=== PATIENT | female | born 1960 | race Caucasian/White ===

== ENCOUNTER 2017-02-05 11:34 | Emergency (ER) | payer SELFPAY ==
--- NOTE | 2017-02-05 17:58 | ED Physician Documentation ---
Neck Injury/Pain - HISTORIAN Historian: patient - HPI Stated Complaint: neck pain Chief Complaint: Neck Pain Additional Information: has had multiple fusions on her neck, last was 6 months ago. they are tapering her off pain medicine and she has been having pain and L upper extremity neuropathy x 2 weeks. No new trauma or injury. Onset: days ago Duration: continues in ED Recent Injury: No Where: home Other Injuries: denies: head, back Severity: mild Quality: burning Associated Symptoms: numbness, tingling. denies: fever Exacerbated By: nothing Relieved By: nothing Further Comments: no - ROS NEURO/PSYCH: denies: difficulty with speech EYES/ENT: none CVS/RESP: none CONST: no problems GI/: denies: nausea, vomiting MS/SKIN/LYMPH: none - PAST HX Past History: arthritis, intervertebral disc dis., back injury, neck pain, back pain Cardiac Risk Factors: denies: cardiac disease Surgeries/Procedures: neck surgery, back surgery, fusion, discectomy CT/MRI: Yes Immunizations: UTD Allergies/Adverse Reactions: Allergies Allergy/AdvReac Type Severity Reaction Status Date / Time bupropion HCl Allergy Verified 02/05/17 17:51 [From Wellbutrin] Penicillins Allergy Verified 02/05/17 17:51 Sulfa (Sulfonamide Allergy Verified 02/05/17 17:51 Antibiotics) Home Medications: Ambulatory Orders Medication Instructions Recorded Metformin HCl [Glucophage] 500 mg PO D 08/04/13 Zolpidem Tartrate [Ambien] 10 mg PO D 08/04/13 Diazepam [Diazepam] 11/25/15 Oxycodone HCl/Acetaminophen 11/25/15 [Oxycodone-Acetaminophen 10-325] - SOCIAL HX Smoking History: non-smoker Alcohol Use: none Drug Use: none - FAMILY HX Family History: none - VITAL SIGNS Vital Signs: Vital Signs Temp Pulse Resp BP Pulse Ox 98.1 F 91 H 14 105/49 99 02/05/17 17:47 02/05/17 17:47 02/05/17 17:47 02/05/17 17:47 02/05/17 17:47 - REVIEWED ASSESSMENT Nursing Assessment Reviewed: Yes Vitals Reviewed: Yes ED Results Lab/Radiology - Orders Orders: ED Orders Category Date Time Status Ketorolac Tromethamine [Toradol] Med 02/05/17 18:03 Discontinued 60 mg .ROUTE .STK-MED ONE Ketorolac Tromethamine [Toradol] Med 02/05/17 18:08 Discontinued 60 mg IM NOW ONE methylPREDNISolone SOD SUCC [Solu-MEDROL] Med 02/05/17 18:03 Discontinued 125 mg .ROUTE .STK-MED ONE methylPREDNISolone SOD SUCC [Solu-MEDROL] Med 02/05/17 18:07 Discontinued 125 mg IM NOW ONE Neck Injury/Pain - Physical Exam General Appearance: no acute distress, alert EENT: nml ENT inspection Neck: decreased ROM. No: lymphadenopathy, subcutaneous emphysema Back: non-tender Respiratory: chest non-tender Abdomen: non-tender Skin: warm/dry Extremities: non-tender, normal range of motion, no evidence of injury Neuro/Psych: oriented x3, sensation nml, motor nml, mood/affect nml Discharge Clincal Impression: Cervical neuralgia, Disc disease, degenerative, cervical Home Medications: Ambulatory Orders Metformin HCl [Glucophage] 500 mg PO D 08/04/13 Zolpidem Tartrate [Ambien] 10 mg PO D 08/04/13 Diazepam [Diazepam] 11/25/15 Oxycodone HCl/Acetaminophen [Oxycodone-Acetaminophen 10-325] 11/25/15 Condition: Good Disposition: 01 HOME, SELF-CARE Decision to Admit: NO Date of Decison to Admit: 02/05/17 Decision Time: 18:22
[2017-02-05] MEDS ORDERED: KETOROLAC TROMETHAMINE 60 MG/2 ML VIAL ONE (18:03)
[2017-02-05] MEDS ORDERED: methylPREDNISolone SOD SUCC 125 MG/2 ML VIAL ONE (18:03)
[2017-02-05] MEDS: methylPREDNISolone SOD SUCC 125 MG/2 ML VIAL IM ONE (18:10)
[2017-02-05] MEDS: KETOROLAC TROMETHAMINE 60 MG/2 ML VIAL IM ONE (18:10)
[2017-02-05 18:32] VITALS: BP 107/51
== END 2017-02-05 18:32 | disposition home or self-care (01) ==
LOC: ED 17:33
DX: M50.30 Other cervical disc degeneration, unspecified cervical region (principal)
CPT/HCPCS: J1885; J2930; 96372; 99283

== ENCOUNTER 2017-03-25 14:35 | Emergency (ER) | payer OTHER ==
[2017-03-25 14:53] VITALS: BP 96/60
[2017-03-25] MEDS ORDERED: KETOROLAC TROMETHAMINE 60 MG/2 ML VIAL IM ONE (14:58)
[2017-03-25] MEDS ORDERED: methylPREDNISolone SOD SUCC 125 MG/2 ML VIAL IM ONE (14:58)
[2017-03-25] MEDS ORDERED: oxyCODONE/ACETAMINOPHEN 5/325 TABLET PO ONE (15:46)
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
== END 2017-03-25 15:52 | disposition home or self-care (01) ==
LOC: ED 14:35
DX: M54.2 Cervicalgia (principal)
CPT/HCPCS: A9270; J1885; J2930; 96372; 99283

== ENCOUNTER 2017-04-08 14:45 | Emergency (ER) | payer OTHER ==
[2017-04-08 16:13] LABS: BASOPHILS % 0.4 (0.0-1.5); EOSINOPHILS % 3.4 % (0.0-6.8); MEAN CORPUSCULAR HEMOGLOBIN 30.3 pg (28.0-34.0); MONOCYTES % 4.8 % (0.0-11.0); NEUTROPHILS # 10.4 # k/uL (1.4-7.7)
--- NOTE | 2017-04-08 16:22 | Diagnostic Imaging Report ---
[facility] [address] [address] Report Submission Date: Apr 08, 2017 4:11:28 PM CDT Patient Study Name: MADAN SADLER Date: Apr 08, 2017 3:49:40 PM CDT Modality Type: CR Gender: F Description: CHEST : 64 Institution: [facility] Physician: KETAN WEI - FRANCES Chest PA and lateral views Clinical history: Cough and fever Linear scar on the right lower lung and left base. No acute infiltrate or pleural effusion. Normal heart shadow and mediastinum. Normal bony thorax Impression: No active pulmonary pathology Electronically signed on Apr 08, 2017 4:11:28 PM CDT by: Vic ISRAEL
[2017-04-08 16:27] LABS: eGFR (African) > 60; eGFR (Non-African) > 60
[2017-04-08] MEDS: oxyCODONE/ACETAMINOPHEN 5/325 TABLET PO ONE (16:49)
[2017-04-08 17:34] VITALS: BP 100/63
--- NOTE | 2017-04-08 19:31 | ED Physician Documentation ---
Upper Respiratory Symptoms - HISTORIAN Historian: patient - HPI Stated Complaint: cough, fever Chief Complaint: Cough/ Upper Respiratory Additional Information: fever prod cough green prod and nasal-on azithromycin since yest-cough med "taste bad-nausea" best friend dx w/pneumonia Onset: days ago (2-3) Duration: intermittent episodes Context: denies: recent foreign travel, insect bite(s) Severity: moderate Associated Symptoms: fever, chills, sweating Worsened by Deep Breath: Yes - ROS CONST/EYES: denies: weakness, eye redness CVS/RESP: shortness of breath LYMPH: denies: leg swelling, rash, swollen glands GI/: none NEURO/PSYCH: anxiety, depression MS/SKIN: joint pain. denies: rash - PAST HX Lung Disease: none Other History: other (diabetes anxiety bipolart depression ) Allergies/Adverse Reactions: Allergies Allergy/AdvReac Type Severity Reaction Status Date / Time bupropion HCl Allergy Verified 04/08/17 15:17 [From Wellbutrin] Penicillins Allergy Verified 04/08/17 15:17 Sulfa (Sulfonamide Allergy Verified 04/08/17 15:17 Antibiotics) Home Medications: Ambulatory Orders Medication Instructions Recorded Albuterol Sulfate [Proair Hfa] 2 inhalation IH Q 4-6 HRS PRN #1 03/21/17 each Duloxetine HCl 60 mg PO DAILY 03/21/17 Fluticasone Propionate 100 mcg NS DAILY #1 brittney 03/21/17 Loratadine/Pseudoephedrine 1 each PO DAILY u2 03/21/17 [Claritin-D 24 Hour Tablet] Nortriptyline HCl 25 mg PO BID av 03/21/17 - SOCIAL HX Smoking History: greater than 1 pack/day Alcohol Use: none Drug Use: none - FAMILY HX Family History: no significant history - VITAL SIGNS Vital Signs: Vital Signs Temp Pulse Resp BP Pulse Ox 98.2 F 87 16 100/63 95 04/08/17 17:33 04/08/17 17:33 04/08/17 17:33 04/08/17 17:33 04/08/17 17:33 - REVIEWED ASSESSMENTS Nursing Assessment Reviewed: Yes Vitals Reviewed: Yes ED Results Lab/Radiology - Lab Results Lab Results: Lab Results 04/08/17 04/08/17 16:00 16:00 WBC 14.30 K/ul H K/ul (4.00-12.00) RBC 3.94 M/ul M/ul (3.90-5.20) Hgb 11.9 g/dL L g/dL (12.0-16.0) Hct 37.0 % % (34.5-46.5) MCV 94.0 fl fl (80.0-100.0) MCH 30.3 pg pg (28.0-34.0) MCHC 32.2 g/dL g/dL (30.0-36.0) RDW 14.0 % % (11.3-14.3) Plt Count 413 K/mm3 H K/mm3 (130-400) Neut % (Auto) 73.1 % % (39.0-79.0) Lymph % (Auto) 17.0 % % (16.0-50.0) [place] % (Auto) 4.8 % % (0.0-11.0) Eos % (Auto) 3.4 % % (0.0-6.8) Baso % (Auto) 0.4 (0.0-1.5) Neut # (Auto) 10.4 # k/uL H # k/uL (1.4-7.7) Lymph # (Auto) 2.4 # k/uL # k/uL (0.6-4.0) [place] # (Auto) 0.7 # k/uL # k/uL (0.0-0.9) Eos # (Auto) 0.5 # k/uL # k/uL (0.0-0.6) Baso # (Auto) 0.1 # k/uL # k/uL (0.0-0.5) Reactive Lymphs % 1.2 % % (0.0-5.0) Reactive Lymphs # 0.2 # k/uL # k/uL (0.0-0.8) Sodium 140 mmol/L mmol/L (136-145) Potassium 4.4 mmol/L mmol/L (3.5-5.0) Chloride 109 mmol/L mmol/L (98-110) Carbon Dioxide 28 mmol/L mmol/L (20-32) BUN 12 mg/dL mg/dL (10-26) Creatinine 0.8 mg/dL mg/dL (0.4-1.5) Estimated Creat Clear 231 Est GFR ( Amer) > 60 (60 - ) Est GFR (Non-Af Amer) > 60 (60 - ) Glucose 89 mg/dL mg/dL (70-99) Calcium 9.7 mg/dL mg/dL (8.5-10.5) Total Bilirubin 0.2 mg/dL mg/dL (0.2-1.2) AST 28 U/L U/L (0-41) ALT 45 U/L U/L (0-45) Alkaline Phosphatase 108 U/L U/L (46-116) Total Protein 6.1 g/dL g/dL (6.0-8.5) Albumin 3.9 g/dL g/dL (3.0-5.5) - Radiology Radiology Impressions: cxr=wnl - Orders Orders: ED Orders Category Date Time Status CHEST P.A.&LAT 2 VIEWS [RAD] Stat Exams 04/08/17 Completed CBC/PLATELET/DIFF NOW Lab 04/08/17 16:00 Completed CMP NOW Lab 04/08/17 16:00 Completed oxyCODONE HCL/ACETAMINOPHEN [Percocet 5-325 mg Tablet] Med 04/08/17 16:41 Discontinued 1 each PO NOW ONE Upper Respiratory Symptoms - EXAM General Appearance: mild distress EENT: eyes nml inspection Neck: normal inspection, supple Respiratory: no resp. distress, wheezes, rales Abdomen: non-tender, no distention CVS: reg rate & rhythm, heart sounds normal Skin: color nml, no rash, warm,dry. No: cyanosis, diaphoresis, pallor Extremities: non-tender Neuro/Psych: oriented x3, mood/affect nml Discharge Clincal Impression: Cough due to bronchospasm, chronic pain patiernt Referrals: Vic Mukherjee MD [Primary Care Provider] - 2 Days Home Medications: Ambulatory Orders Albuterol Sulfate [Proair Hfa] 2 inhalation IH Q 4-6 HRS PRN #1 each 03/21/17 Duloxetine HCl 60 mg PO DAILY 03/21/17 Fluticasone Propionate 100 mcg NS DAILY #1 brittney 03/21/17 Loratadine/Pseudoephedrine [Claritin-D 24 Hour Tablet] 1 each PO DAILY u2 03/21 Nortriptyline HCl 25 mg PO BID av 03/21/17 Comments: pt on chronic narcotic-out requests refill-not given-pt req tylenol w/codiene for cough Condition: Good Disposition: 01 HOME, SELF-CARE Decision to Admit: NO Decision Time: 19:26
== END 2017-04-08 17:33 | disposition home or self-care (01) ==
LOC: ED 14:45
DX: R05 Cough (principal); G89.29 Other chronic pain
CPT/HCPCS: 71020; 80053; 85025; A9270; 99283; S1016

== ENCOUNTER 2017-04-11 20:29 | Emergency (ER) | payer OTHER ==
[2017-04-11 20:45] VITALS: BP 127/83
[2017-04-11] MEDS ORDERED: oxyCODONE/ACETAMINOPHEN 5/325 TABLET PO ONE ×2 (20:45→20:46)
[2017-04-11] MEDS ORDERED: methylPREDNISolone SOD SUCC 125 MG/2 ML VIAL IM ONE (20:46)
[2017-04-11] MEDS ORDERED: methylPREDNISolone SOD SUCC 125 MG/2 ML VIAL ONE (20:46)
--- NOTE | 2017-04-11 20:50 | ED Physician Documentation ---
Low Back Pain - HISTORIAN Historian: patient - HPI Stated Complaint: back pain Chief Complaint: Low Back Pain/ Injury Additional Information: is out of meds History: history of chronic pain:, back pain Onset: days ago Duration: continues in ED Recent Injury: No Severity: mild Quality: sharp, similar- prior back pain Associated Symptoms: denies: fever, chills, problems urinating, weakness Worsened By:: movement to RT flexion, movement to LT flexion Relieved By: nothing Further Comments: no - ROS CONST: no problems CVS/RESP: none EYES/ENT: none MS/SKIN/LYMPH: none Neuro/Psych: none GI/: denies: abdominal pain - PAST HX Past History: back injury, back pain, sciatica Other History: denies: aortic aneurysm Surgeries/Procedures: back surgery Allergies/Adverse Reactions: Allergies Allergy/AdvReac Type Severity Reaction Status Date / Time bupropion HCl Allergy Verified 04/11/17 20:39 [From Wellbutrin] Penicillins Allergy Verified 04/11/17 20:39 Sulfa (Sulfonamide Allergy Verified 04/11/17 20:39 Antibiotics) Home Medications: Ambulatory Orders Medication Instructions Recorded Albuterol Sulfate [Proair Hfa] 2 inhalation IH Q 4-6 HRS PRN #1 03/21/17 each Duloxetine HCl 60 mg PO DAILY 03/21/17 Fluticasone Propionate 100 mcg NS DAILY #1 brittney 03/21/17 Nortriptyline HCl 25 mg PO BID av 03/21/17 - SOCIAL HX Smoking History: cigarettes Alcohol Use: occasionally Drug Use: none - FAMILY HX Family History: none - VITAL SIGNS Vital Signs: Vital Signs Temp Pulse Resp BP Pulse Ox 98.1 F 108 H 16 127/83 97 04/11/17 20:30 04/11/17 20:30 04/11/17 20:30 04/11/17 20:30 04/11/17 20:30 - REVIEWED ASSESSMENTS Nursing Assessment Reviewed: Yes Vitals Reviewed: Yes ED Results Lab/Radiology - Orders Orders: ED Orders Category Date Time Status methylPREDNISolone SOD SUCC [Solu-MEDROL] Med 04/11/17 20:46 Once 125 mg IM NOW ONE oxyCODONE HCL/ACETAMINOPHEN [Percocet 5-325 mg Tablet] Med 04/11/17 20:45 Discontinued 1 each PO .STK-MED ONE oxyCODONE HCL/ACETAMINOPHEN [Percocet 5-325 mg Tablet] Med 04/11/17 20:46 Once 1 each PO NOW ONE Low Back Pain/Injury - Physical Exam General Appearance: no acute distress, alert Resp/CVS: no resp. distress Abdomen: non-tender Back: muscle spasm Neuro/Psych: oriented x3 Skin: warm/dry, normal color Extremities: non-tender Discharge Clincal Impression: Chronic back pain Qualifiers: Back pain location: low back pain Back pain laterality: unspecified Sciatica presence: with sciatica Sciatica laterality: bilateral sciatica Qualified Code(s ): M54.41 - Lumbago with sciatica, right side; M54.42 - Lumbago with sciatica, left side; G89.29 - Other chronic pain Referrals: Vic Mukherjee MD [Primary Care Provider] - 2 Days Home Medications: Ambulatory Orders Albuterol Sulfate [Proair Hfa] 2 inhalation IH Q 4-6 HRS PRN #1 each 03/21/17 Duloxetine HCl 60 mg PO DAILY 03/21/17 Fluticasone Propionate 100 mcg NS DAILY #1 brittney 03/21/17 Nortriptyline HCl 25 mg PO BID av 03/21/17 Condition: Good Disposition: 01 HOME, SELF-CARE Decision to Admit: NO Date of Decison to Admit: 04/11/17 Decision Time: 20:50
== END 2017-04-11 20:50 | disposition home or self-care (01) ==
LOC: ED 20:29
DX: M25.441 Effusion, right hand (principal); M54.42 Lumbago with sciatica, left side; G89.29 Other chronic pain
CPT/HCPCS: A9270; J2930; 96372; 99283

== ENCOUNTER 2017-05-02 15:45 | Outpatient (CLI) | payer OTHER | END 2017-05-02 15:46 | LOC: LAB 15:45 | PROVIDERS: ATTEND Family Medicine | DX: E11.9 Type 2 diabetes mellitus without complications (principal) | CPT/HCPCS: 36415; 82043; 83036 ==

== ENCOUNTER 2017-05-03 21:38 | Emergency (ER) | payer OTHER ==
[2017-05-03] MEDS: KETOROLAC TROMETHAMINE 60 MG/2 ML VIAL IM ONE (22:10)
[2017-05-03] MEDS: HALOPERIDOL LACTATE 5 MG/ML VIAL IM ONE (22:10)
--- NOTE | 2017-05-03 22:10 | ED Physician Documentation ---
Low Back Pain - HISTORIAN Historian: patient - HPI Stated Complaint: left hip pain Chief Complaint: Low Back Pain/ Injury History: back pain Onset: other (normal back pain with radiation down left leg but tired of the pain) Duration: continues in ED Recent Injury: No Context: other (chronic) Other Injuries: back Severity: moderate Quality: similar- prior back pain Associated Symptoms: numbness (left leg) Worsened By:: movement to RT flexion, movement to LT flexion Relieved By: nothing Further Comments: no - ROS CONST: no problems CVS/RESP: none EYES/ENT: none MS/SKIN/LYMPH: none Neuro/Psych: none GI/: denies: abdominal pain, black stools - PAST HX Past History: back pain, other (bipolar disorder) Other History: diabetes Type 2, hypertension, other (anxiety, depression) Surgeries/Procedures: hysterectomy, other (otho) Immunizations: referred to PCP Allergies/Adverse Reactions: Allergies Allergy/AdvReac Type Severity Reaction Status Date / Time bupropion HCl Allergy Verified 05/03/17 21:52 [From Wellbutrin] Penicillins Allergy Verified 05/03/17 21:52 Sulfa (Sulfonamide Allergy Verified 05/03/17 21:52 Antibiotics) Home Medications: Ambulatory Orders Medication Instructions Recorded Albuterol Sulfate [Proair Hfa] 2 inhalation IH Q 4-6 HRS PRN #1 03/21/17 each Duloxetine HCl 60 mg PO DAILY 03/21/17 Fluticasone Propionate 100 mcg NS DAILY #1 brittney 03/21/17 Nortriptyline HCl 25 mg PO BID av 03/21/17 - SOCIAL HX Smoking History: non-smoker Alcohol Use: none Drug Use: none - FAMILY HX Family History: no significant history - VITAL SIGNS Vital Signs: Vital Signs Temp Pulse Resp BP Pulse Ox 60 16 122/72 98 05/03/17 22:20 05/03/17 22:20 05/03/17 22:20 05/03/17 22:20 - REVIEWED ASSESSMENTS Nursing Assessment Reviewed: Yes Vitals Reviewed: Yes Progress - Results/Orders Results/Orders: no testing ordered - Progress Progress: pt. given 60 mg toradol and 5 mg haldol im in er Critical Care Note - Critical Care Note Total Time (mins): 0 ED Results Lab/Radiology - Lab Results Lab Results: none ordered - Radiology Radiology Impressions: none ordered - Orders Orders: ED Orders Category Date Time Status Haloperidol Lactate [Haldol] Med 05/03/17 21:48 Discontinued 5 mg IM NOW ONE Ketorolac Tromethamine [Toradol] Med 05/03/17 21:48 Discontinued 60 mg IM NOW ONE Low Back Pain/Injury - Physical Exam General Appearance: alert, moderate distress EENT: eye inspection normal, ENT inspection normal, pharynx normal, no signs of dehydration, GLYNN, no nystagmus, TM's nml Neck: non-tender, painless ROM Resp/CVS: chest non-tender, breath sounds nml, heart sounds nml, no resp. distress, lungs clear, reg. rate & rhythm Abdomen: non-tender, no organomegaly Straight Leg Raising: Negative Right, Positive Left Neuro/Psych: oriented x3, motor nml, sensation nml, bilat. doriflexion nml, reflexes nml Skin: warm/dry, normal color Extremities: non-tender, normal range of motion, no evidence of injury, no edema Discharge Clincal Impression: Sciatica Qualifiers: Laterality: left Qualified Code(s): M54.32 - Sciatica, left side Referrals: Vic Mukherjee MD [Primary Care Provider] - 2 Days Home Medications: Ambulatory Orders Albuterol Sulfate [Proair Hfa] 2 inhalation IH Q 4-6 HRS PRN #1 each 03/21/17 Duloxetine HCl 60 mg PO DAILY 03/21/17 Fluticasone Propionate 100 mcg NS DAILY #1 brittney 03/21/17 Nortriptyline HCl 25 mg PO BID av 03/21/17 Comments: discharged with scripts for parafon forte dsc 500 mg 1 p.o. qid, meloxicam 7.5 mg 1 pill twice daily Condition: Stable Disposition: 01 HOME, SELF-CARE Decision to Admit: NO Decision Time: 22:06
[2017-05-03 22:52] VITALS: BP 122/72
== END 2017-05-03 22:20 | disposition home or self-care (01) ==
LOC: ED 21:38
DX: M54.32 Sciatica, left side (principal)
CPT/HCPCS: 96372; 99283; J1630; J1885

== ENCOUNTER 2017-05-21 09:19 | Outpatient (CLI) | payer OTHER ==
--- NOTE | 2017-05-21 12:12 | HISTORY AND PHYSICAL REPORT ---
REFERRING PHYSICIAN: Dr. Vic Mukherjee Dear Link: HISTORY OF PRESENT ILLNESS: I had the opportunity of seeing Laine Jain today as an outpatient at [facility]. Ms. Jain is a very nice 57-year-old white female who presents with a chief complaint of left low back, hip, and leg pain and secondary complaints of mid-axial pain at the cervicothoracic junction in between her shoulder blades. She denies any recent accident or injury. She has had 2 previous anterior cervical diskectomies and fusions and what appears to be a lumbar diskectomy by Dr. Li in 2006 or 2007. She says that the symptoms that she is currently having have been getting worse over the past 2 years and they have gotten quite a bit worse over the past 6 months and she complains of constant left-sided back pain radiating to the left hip. She has been taking oxycodone intermittently and periodically written by Dr. Mukherjee for number 30. She also takes diazepam. She has type 2 diabetes which is well controlled. She is on Metformin. She, otherwise, has suffered the recent loss of her . She has transportation issues in regards to getting to my office in [place]. She says the hip and leg pain are the worst complaint. She currently has back and hip pain when she stands and walks first thing in the morning and worse over the course of the day. She says the pain is better with rest and lying down and taking pain medication. She has no recent imaging. She denies arm pain. She denies pain in her right leg. She denies incontinence of bowel or bladder or symptoms of neurogenic claudication. PAST MEDICAL HISTORY: 1. Positive for vision problems. 2. Nose or sinus problems. 3. Asthma. 4. Bronchitis. 5. Stomach ulcers or gastritis. 6. Depression. 7. Anxiety. 8. Frequent headaches. 9. Diabetes. PAST SURGICAL HISTORY: 1. Neck surgery in 1998 and 2015. 2. Low back surgery in 2007. 3. Hysterectomy in 2002. 4. Right ankle and left wrist surgery in 2011. CURRENT MEDICATION LIST: 1. Nortriptyline 50 mg t.i.d. 2. Percocet 5/325 mg b.i.d. p.r.n. 3. Metformin 1000 mg b.i.d. 4. Lisinopril 2.5 mg daily. 5. Diazepam 5 mg t.i.d. 6. Flonase 50 mcg x2 daily. 7. ProAir p.r.n. 8. Duloxetine 60 mg daily. 9. Vitamin B daily. 10. Multivitamin daily. ALLERGIES: 1. Penicillin. 2. Sulfa. 3. Meloxicam. 4. Wellbutrin. SOCIAL HISTORY: Patient currently smokes 1 to 1-1/2 packs of cigarettes per day. She denies drinking alcohol. She said she quit drinking in 1992. She denies recreational drug use. She is a since November 08 of this year. She was for 21 years previous. She has no children. She lives alone with her dog. She is disabled due to low back problems in 2003. FAMILY HISTORY: Unknown in patient's father. Diabetes and pain problems in patient's mother. REVIEW OF SYSTEMS: Positive for head cold, swelling in her hands and feet, cough, cold, and infection, stomach pain and upset, depression, anxiety, and headaches. Treatment for the current pain problems include previous back and neck surgeries. She has been to physical therapy which has not helped. She has been currently going to psychological counseling, as she lost her in November and has noted increased stress and pain since that event. PHYSICAL EXAMINATION: General: She is a well-developed white female in no apparent distress. Vital Signs: BP: 136/70, P: 88, R: 20, oxygen saturation is 99% on room air. HEENT: Pupils are equal, round, and reactive to light and accommodation. Extraocular movements intact. No facial droop. Neck: There is full range of motion of the cervical spine. No evidence of adenopathy. Thyroid is nontender, no enlarged. Carotids are without bruits. Chest: Clear to auscultation bilaterally. Normal chest excursion. Heart: Regular rate and rhythm without murmur. Abdomen: Benign. Normoactive bowel sounds. Motor/sensory: Intact in the upper and lower extremities. Moves all extremities freely. Back: There is a positive straight leg raise on the left and negative straight leg raise on the right. Positive for pain at the left sciatic notch and left sacroiliac joint. Reflexes are 2+ and equal at the patellar tendons and Achilles tendons. Sensorium is intact. There is a positive assisted extension and extension rotation of the thoracic and cervical spine. ASSESSMENT: 1. Left L4-L5 radiculitis, possible previous surgical decompression. I recommend a new MRI study and a palliative epidural injection. 2. Cervical and thoracic spondylosis. Would likely be adequately treated with facet medial branch block and radiofrequency neurolysis. 3. Diabetes mellitus type 2, well controlled on Metformin. 4. Tobacco use. Recommend cessation. 5. Chronic opiate dependence. PLAN: I will provide her with a prescription today and have her follow up in my office for a urine toxicology screen and an opiate contract. I told her that I could manage her medications through my [place] office. Dr. Mukherjee, thank you very much for allowing me to take part in the care of this nice lady. We will check her insurance product regarding ability for preauthorization for treatment. cc: Dr. Vic ISRAEL
== END 2017-05-21 10:00 ==
LOC: OUT 09:19
PROVIDERS: ATTEND Anesthesiology Pain Medicine
DX: M54.16 Radiculopathy, lumbar region (principal); M47.894 Other spondylosis, thoracic region; F11.20 Opioid dependence, uncomplicated; F17.200 Nicotine dependence, unspecified, uncomplicated; E11.9 Type 2 diabetes mellitus without complications; Z71.89 Other specified counseling
CPT/HCPCS: 99214; G0463

== ENCOUNTER 2017-06-04 23:33 | Emergency (ER) | payer OTHER ==
[2017-06-05] MEDS: KETOROLAC TROMETHAMINE 60 MG/2 ML VIAL IM ONE (00:27)
--- NOTE | 2017-06-05 00:48 | ED Physician Documentation ---
Low Back Pain - HISTORIAN Historian: patient - HPI Stated Complaint: Back pain Chief Complaint: Low Back Pain/ Injury History: history of chronic pain:, back pain Onset: hours Duration: continues in ED Context: lifting Severity: severe Further Comments: yes (57 year old male presents to the ER with complaints of sciatica radiating down left leg. Patient reports lifting his brother in law, "pulled my back". Patient is accompanied by his friend who presents with similar complaints. C/O pain radiating down left leg.) - ROS CONST: no problems CVS/RESP: none EYES/ENT: none MS/SKIN/LYMPH: back pain Neuro/Psych: none GI/: denies: abdominal pain, black stools - PAST HX Past History: back pain, sciatica Other History: other (COPD, depression, sciatica, HLD) Allergies/Adverse Reactions: Allergies Allergy/AdvReac Type Severity Reaction Status Date / Time bupropion HCl Allergy Verified 06/04/17 23:55 [From Wellbutrin] metformin Allergy Verified 06/04/17 23:55 Penicillins Allergy Verified 06/04/17 23:55 Sulfa (Sulfonamide Allergy Verified 06/04/17 23:55 Antibiotics) Home Medications: Ambulatory Orders Medication Instructions Recorded Albuterol Sulfate [Proair Hfa] 2 inhalation IH Q 4-6 HRS PRN #1 03/21/17 each Duloxetine HCl 60 mg PO DAILY 03/21/17 Fluticasone Propionate 100 mcg NS DAILY #1 brittney 03/21/17 Nortriptyline HCl 25 mg PO BID av 03/21/17 Atorvastatin Calcium 40 mg PO QDAY 06/05/17 Naproxen [Naprosyn] 500 mg PO BID #10 tablet 06/05/17 - SOCIAL HX Smoking History: cigarettes - FAMILY HX Family History: denies: none - VITAL SIGNS Vital Signs: Vital Signs Temp Pulse Resp BP Pulse Ox 98.6 F 96 H 14 97/58 93 06/04/17 23:35 06/05/17 00:18 06/04/17 23:35 06/05/17 00:18 06/05/17 00:18 - REVIEWED ASSESSMENTS Nursing Assessment Reviewed: Yes Vitals Reviewed: Yes ED Results Lab/Radiology - Orders Orders: ED Orders Category Date Time Status Ketorolac Tromethamine [Toradol] Med 06/05/17 00:07 Discontinued 60 mg IM NOW ONE Low Back Pain/Injury - Physical Exam General Appearance: no acute distress, alert EENT: eye inspection normal, GLYNN Resp/CVS: chest non-tender, breath sounds nml, heart sounds nml, no resp. distress, lungs clear, reg. rate & rhythm Back: non-tender, painless ROM, other (c/o pain with palpation of left paraspinous muscles and left buttock. Up pacing in room, no limp, gait steady, no grimace with ambulation. ) Straight Leg Raising: Negative Left, Negative Right Neuro/Psych: oriented x3, motor nml, sensation nml, bilat. 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 Clincal Impression: Sciatica Qualifiers: Laterality: left Qualified Code(s): M54.32 - Sciatica, left side Prescriptions: Naproxen [Naprosyn] 500 mg PO BID #10 tablet Referrals: Vic Mukherjee MD [Primary Care Provider] - 2 Days Home Medications: Ambulatory Orders Albuterol Sulfate [Proair Hfa] 2 inhalation IH Q 4-6 HRS PRN #1 each 03/21/17 Duloxetine HCl 60 mg PO DAILY 03/21/17 Fluticasone Propionate 100 mcg NS DAILY #1 brittney 03/21/17 Nortriptyline HCl 25 mg PO BID av 03/21/17 Atorvastatin Calcium 40 mg PO QDAY 06/05/17 Naproxen [Naprosyn] 500 mg PO BID #10 tablet 06/05/17 Condition: Stable Disposition: 01 HOME, SELF-CARE Decision to Admit: NO Decision Time: 00:50
--- NOTE | 2017-06-05 00:53 | ED Physician Documentation ---
Low Back Pain - HISTORIAN Historian: patient, friend - [facility] Stated Complaint: Back pain Chief Complaint: Low Back Pain/ Injury History: history of chronic pain:, back pain Onset: hours Duration: continues in ED Context: lifting Where: home Severity: severe Further Comments: yes (57 year old female patient presents with complaint of low back pain. Patient reports her 2 brother in laws picked up the brother in law and strained her back. Patient states she strained her back. Patient does not include herself in lifting brother in law. Patient presents with another patient with similar complaint. Old records reviewed. Patient is under the care of Dr Harman for pain management for chronic opiate dependence. Speech is slurred, falling asleep during ROS and H&P.) - ROS CONST: denies: no problems CVS/RESP: none EYES/ENT: none MS/SKIN/LYMPH: back pain. denies: calf pain, neck pain, leg swelling, leg pain Neuro/Psych: none GI/: denies: abdominal pain, black stools - PAST HX Past History: back pain Other History: diabetes Type 2, other (COPD, depression, sciatica, HLD) Surgeries/Procedures: back surgery Allergies/Adverse Reactions: Allergies Allergy/AdvReac Type Severity Reaction Status Date / Time bupropion HCl Allergy Verified 06/04/17 23:55 [From Wellbutrin] metformin Allergy Verified 06/04/17 23:55 Penicillins Allergy Verified 06/04/17 23:55 Sulfa (Sulfonamide Allergy Verified 06/04/17 23:55 Antibiotics) Home Medications: Ambulatory Orders Medication Instructions Recorded Albuterol Sulfate [Proair Hfa] 2 inhalation IH Q 4-6 HRS PRN #1 03/21/17 each Duloxetine HCl 60 mg PO DAILY 03/21/17 Fluticasone Propionate 100 mcg NS DAILY #1 brittney 03/21/17 Nortriptyline HCl 25 mg PO BID av 03/21/17 Atorvastatin Calcium 40 mg PO QDAY 06/05/17 Naproxen [Naprosyn] 500 mg PO BID #10 tablet 06/05/17 - SOCIAL HX Smoking History: cigarettes - FAMILY HX Family History: denies: none - VITAL SIGNS Vital Signs: Vital Signs Temp Pulse Resp BP Pulse Ox 98.6 F 96 H 14 97/58 93 06/04/17 23:35 06/05/17 00:18 06/04/17 23:35 06/05/17 00:18 06/05/17 00:18 - REVIEWED ASSESSMENTS Nursing Assessment Reviewed: Yes Vitals Reviewed: Yes Progress - Progress Progress: Patient medicated for pain with toradol IM. Requesting refill of percocet, states she is out. 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 Educated patient on pain contract per Dr Harman note on 05/21/2017, explained all narcotics would need to be prescribed by him. Patient requesting percocet po in ER. Pharmacy record shows patient filled #[phone] on 05/21/17. Will not give narcotics as patient's speech is slurred and she appears to sleep when left alone. At discharge patient was able to get off stretcher without assistance, gait steady, no grimacing. ED Results Lab/Radiology - Orders Orders: ED Orders Category Date Time Status Ketorolac Tromethamine [Toradol] Med 06/05/17 00:07 Discontinued 60 mg IM NOW ONE Low Back Pain/Injury - Physical Exam General Appearance: mild distress EENT: eye inspection normal, GLYNN Resp/CVS: chest non-tender, breath sounds nml, heart sounds nml, no resp. distress, lungs clear, reg. rate & rhythm Abdomen: non-tender, no organomegaly, no pulsatile mass Back: non-tender, painless ROM. 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 Discharge Clincal Impression: Drug-seeking behavior Chronic back pain Qualifiers: Back pain location: low back pain Back pain laterality: bilateral Sciatica presence: without sciatica Qualified Code(s): M54.5 - Low back pain; G89.29 - Other chronic pain Prescriptions: Naproxen [Naprosyn] 500 mg PO BID #10 tablet Referrals: Vic Mukherjee MD [Primary Care Provider] - 2 Days Home Medications: Ambulatory Orders Albuterol Sulfate [Proair Hfa] 2 inhalation IH Q 4-6 HRS PRN #1 each 03/21/17 Duloxetine HCl 60 mg PO DAILY 03/21/17 Fluticasone Propionate 100 mcg NS DAILY #1 brittney 03/21/17 Nortriptyline HCl 25 mg PO BID av 03/21/17 Atorvastatin Calcium 40 mg PO QDAY 06/05/17 Naproxen [Naprosyn] 500 mg PO BID #10 tablet 06/05/17 Condition: Stable Disposition: 01 HOME, SELF-CARE Decision to Admit: NO Decision Time: 01:00
[2017-06-05 01:03] VITALS: BP 102/57
== END 2017-06-05 00:55 | disposition home or self-care (01) ==
LOC: ED 23:33
DX: M54.5 Low back pain (principal); G89.29 Other chronic pain; Z76.5 Malingerer [conscious simulation]
CPT/HCPCS: 96372; 99283; J1885

== ENCOUNTER 2017-06-05 13:33 | Emergency (ER) | payer OTHER ==
--- NOTE | 2017-06-05 14:19 | ED Physician Documentation ---
General Adult - SOCIAL HX Smoking History: greater than 1 pack/day Alcohol Use: none Drug Use: none - FAMILY HX Family History: No - VITAL SIGNS Vital Signs: Vital Signs Temp Pulse Resp BP Pulse Ox 98.2 F 113 H 20 104/73 99 06/05/17 13:35 06/05/17 13:35 06/05/17 13:35 06/05/17 13:35 06/05/17 13:35 - REVIEWED ASSESSMENTS Nursing Assessment Reviewed: Yes Vitals Reviewed: Yes <Vic Mukherjee - Last Filed: 06/05/17 14:44> - HISTORIAN Historian: patient - HPI Stated Complaint: pain/diarrhea Chief Complaint: General Adult Additional Information: Patient returns to ED after discharge 8..17 @ 0055 for pain and she did not feel she had resolution. She states she was trying to get an appt with Dr Mukherjee today but was not able to schedule an open appt. She states she had pain in her right lower back and left hip along with her abdomen. She states the pain is managed by pain management. She did take percocet at 4 am and ibuprofen Onset: hours (5) Timing: pain lasting Severity: severe Last known Well Date: 06/02/17 (She was having less pain on this date) Last known Well Code/Unknown Code: Unknown - ROS CONST: weakness. denies: fever, sweating, weight loss, chills CVS/RESP: denies: chest pain, shortness of breath, cough GI/: abdominal pain, diarrhea. denies: problems urinating, vomiting, nausea, black stools MS/SKIN/LYMPH: neck pain, joint pain, leg pain, back pain. denies: leg swelling , rash, ankle swelling NEURO/PSYCH: dizziness, difficulty walking. denies: headache, fainting, tingling, numbness, difficulty with speech, anxiety, depression - PAST HX Past History: other (back and hip pain ) Other History: none Surgeries/Procedures: other (back and neck surgery ) - SOCIAL HX Smoking History: greater than 1 pack/day Alcohol Use: none Drug Use: none - VITAL SIGNS Vital Signs: Vital Signs Temp Pulse Resp BP Pulse Ox 102/57 06/05/17 10:41 - REVIEWED ASSESSMENTS Nursing Assessment Reviewed: Yes Vitals Reviewed: Yes <Francoise Rodriguez - Last Filed: 06/05/17 17:50> - PAST HX Allergies/Adverse Reactions: Allergies Allergy/AdvReac Type Severity Reaction Status Date / Time bupropion HCl Allergy Verified 06/04/17 23:55 [From Wellbutrin] metformin Allergy Verified 06/04/17 23:55 Penicillins Allergy Verified 06/04/17 23:55 Sulfa (Sulfonamide Allergy Verified 06/04/17 23:55 Antibiotics) Home Medications: Ambulatory Orders Medication Instructions Recorded Albuterol Sulfate [Proair Hfa] 2 inhalation IH Q 4-6 HRS PRN #1 03/21/17 each Duloxetine HCl 60 mg PO DAILY 03/21/17 Fluticasone Propionate 100 mcg NS DAILY #1 brittney 03/21/17 Nortriptyline HCl 25 mg PO BID av 03/21/17 Atorvastatin Calcium 40 mg PO QDAY 06/05/17 Naproxen [Naprosyn] 500 mg PO BID #10 tablet 06/05/17 Oxycodone HCl/Acetaminophen 1 each PO BID #2 tablet 06/05/17 [Percocet 10/325] ED Results Lab/Radiology - Orders Orders: ED Orders Category Date Time Status Ketorolac Tromethamine [Toradol] Med 06/05/17 14:34 Once 60 mg IM NOW ONE <Vic Mukherjee - Last Filed: 06/05/17 14:44> General Adult Physical Exam - PHYSICAL EXAM GENERAL APPEARANCE: no distress NECK: normal inspection RESPIRATORY: no resp distress, chest non-tender, breath sounds normal. No: wheezes, rales, rhonchi CVS: reg rate & rhythm, heart sounds normal, equal pulses, no murmur, no gallop , PMI nml, no JVD. No: tachycardia ABDOMEN: soft, no organomegaly, normal bowel sounds, no distension, non-tender. No: McBurney's point tenderne, rebound, distended, guarding, splenomegaly BACK: normal inspection (She moves easily in bed from supine to sitting and sitting to supine without evidence of pain ) SKIN: warm/dry EXTREMITIES: non-tender, no edema NEURO: oriented X3 <Francoise Rodriguez - Last Filed: 06/05/17 17:50> Discharge Decision to Admit: NO Date of Decison to Admit: 06/05/17 Decision Time: 14:47 <Vic Mukherjee - Last Filed: 06/05/17 14:44> <Francoise Rodriguez - Last Filed: 06/05/17 17:50> Clincal Impression: Low back pain Prescriptions: Oxycodone HCl/Acetaminophen [Percocet 10/325] 1 each PO BID #2 tablet Referrals: Vic Mukherjee MD [Primary Care Provider] - 2 Days Additional Instructions: Go home and try to locate your missing medication. Take some Tylenol/Ibuprofen as needed for pain. Follow-up with Dr Harman. Home Medications: Ambulatory Orders Albuterol Sulfate [Proair Hfa] 2 inhalation IH Q 4-6 HRS PRN #1 each 03/21/17 Duloxetine HCl 60 mg PO DAILY 03/21/17 Fluticasone Propionate 100 mcg NS DAILY #1 brittney 03/21/17 Nortriptyline HCl 25 mg PO BID av 03/21/17 Atorvastatin Calcium 40 mg PO QDAY 06/05/17 Naproxen [Naprosyn] 500 mg PO BID #10 tablet 06/05/17 Oxycodone HCl/Acetaminophen [Percocet 10/325] 1 each PO BID #2 tablet 06/05/17 Condition: Stable Disposition: 01 HOME, SELF-CARE
[2017-06-05] MEDS: KETOROLAC TROMETHAMINE 60 MG/2 ML VIAL IM ONE (14:40)
[2017-06-05 15:23] VITALS: BP 101/63
== END 2017-06-05 14:14 | disposition home or self-care (01) ==
LOC: ED 13:33
DX: M54.5 Low back pain (principal)
CPT/HCPCS: 96372; 99283; J1885

== ENCOUNTER 2017-06-06 16:09 | Outpatient (CLI) | payer OTHER ==
[2017-06-05 15:23] VITALS: BP 101/63
[2017-06-06 16:16] LABS: BASOPHILS % 0.4 (0.0-1.5); EOSINOPHILS % 4.3 % (0.0-6.8); MEAN CORPUSCULAR HEMOGLOBIN 29.1 pg (28.0-34.0); MONOCYTES % 5.7 % (0.0-11.0); NEUTROPHILS # 8.4 # k/uL (1.4-7.7)
[2017-06-06 16:28] LABS: eGFR (African) > 60; eGFR (Non-African) > 60
== END 2017-06-06 16:10 ==
LOC: LABRHC 16:09
PROVIDERS: ATTEND Family Medicine
DX: E11.9 Type 2 diabetes mellitus without complications (principal)
CPT/HCPCS: 80053; 85025

== ENCOUNTER 2017-06-09 09:24 | Emergency (ER) | payer OTHER ==
[2017-06-09 09:48] VITALS: BP 116/84
--- NOTE | 2017-06-09 09:49 | ED Physician Documentation ---
General Adult - HISTORIAN Historian: patient - HPI Stated Complaint: chronic hip & back pain Chief Complaint: General Adult Onset: days ago Timing: still present Further Comments: yes (Pt is a 57 yo female with chronic back & hip pain. Pt has had several office visits and ER visits recently requesting pain medications. Pt has an appointment with Dr. Harman pain clinic in about 10 days. Pt c/o back and hip pain at this visit. Pt was rx'd Mobic at her last office visit, but has not filled the prescription.) - ROS CONST: no problems EYES/ENT: none CVS/RESP: none GI/: none MS/SKIN/LYMPH: back pain, other (hip pain) - PAST HX Past History: other (back pain; DMII; COPD; depression; sciatica; HLD.) Surgeries/Procedures: other (back surgery) Allergies/Adverse Reactions: Allergies Allergy/AdvReac Type Severity Reaction Status Date / Time bupropion HCl Allergy Verified 06/09/17 09:51 [From Wellbutrin] metformin Allergy Verified 06/09/17 09:51 Penicillins Allergy Verified 06/09/17 09:51 Sulfa (Sulfonamide Allergy Verified 06/09/17 09:51 Antibiotics) Home Medications: Ambulatory Orders Medication Instructions Recorded Albuterol Sulfate [Proair Hfa] 2 inhalation IH Q 4-6 HRS PRN #1 03/21/17 each Duloxetine HCl 60 mg PO DAILY 03/21/17 Fluticasone Propionate 100 mcg NS DAILY #1 brittney 03/21/17 Nortriptyline HCl 25 mg PO BID av 03/21/17 Atorvastatin Calcium 40 mg PO QDAY 06/05/17 Naproxen [Naprosyn] 500 mg PO BID #10 tablet 06/05/17 Oxycodone HCl/Acetaminophen 1 each PO BID #2 tablet 06/05/17 [Percocet 10/325] - SOCIAL HX Smoking History: cigarettes - FAMILY HX Family History: No - VITAL SIGNS Vital Signs: Vital Signs Temp Pulse Resp BP Pulse Ox 101/63 06/05/17 14:56 - REVIEWED ASSESSMENTS Nursing Assessment Reviewed: Yes Vitals Reviewed: Yes Progress - Progress Progress: Toradol 60 mg IM d/c instructions: Take Mobic as prescribed. Do not start take Mobic for at least 8 hrs after leaving ER today. General Adult Physical Exam - PHYSICAL EXAM GENERAL APPEARANCE: mild distress EENT: eye inspection normal NECK: normal inspection, supple RESPIRATORY: no resp distress, chest non-tender, breath sounds normal CVS: reg rate & rhythm, heart sounds normal ABDOMEN: soft, no organomegaly, normal bowel sounds BACK: normal inspection, other (no vertebral point tenderness) SKIN: warm/dry, normal color EXTREMITIES: non-tender, normal range of motion NEURO: oriented X3, motor nml, sensation nml, other (DTR's wnl) Discharge Clincal Impression: chronic hip & back pain Referrals: Vic Mukherjee MD [Primary Care Provider] - Home Medications: Ambulatory Orders Albuterol Sulfate [Proair Hfa] 2 inhalation IH Q 4-6 HRS PRN #1 each 03/21/17 Duloxetine HCl 60 mg PO DAILY 03/21/17 Fluticasone Propionate 100 mcg NS DAILY #1 brittney 03/21/17 Nortriptyline HCl 25 mg PO BID av 03/21/17 Atorvastatin Calcium 40 mg PO QDAY 06/05/17 Naproxen [Naprosyn] 500 mg PO BID #10 tablet 06/05/17 Oxycodone HCl/Acetaminophen [Percocet 10/325] 1 each PO BID #2 tablet 06/05/17 Condition: Stable Disposition: 01 HOME, SELF-CARE Decision to Admit: NO Decision Time: 09:55
[2017-06-09] MEDS: KETOROLAC TROMETHAMINE 60 MG/2 ML VIAL IM ONE (09:59)
== END 2017-06-09 10:08 | disposition home or self-care (01) ==
LOC: ED 09:24
DX: G89.29 Other chronic pain (principal)
CPT/HCPCS: 96372; 99283; J1885

== ENCOUNTER 2017-06-18 13:38 | Outpatient (CLI) | payer OTHER ==
[~2017-06-18 13:38] MED LIST: 0.9 % SODIUM CHLORIDE PF 10 ML VIAL IJ ONE; Lidocaine 1% 5ml(IM or SUTURE)(PAIN CLINIC) ONE; TRIAMCINOLONE ACETONID 40MG/ML VIAL ONE
--- NOTE | 2017-06-19 10:14 | LESI WITH FLUORO ---
SUBJECTIVE: Ms. Jain comes in today with a history of left-sided low back pain, left hip and anterior thigh pain at L4 dermatomal distribution. I saw her last month and obtained an MRI study which shows global spondylolytic changes and degenerative disk disease at every level of the lumbar spine. She has an L5-S1 retrolisthesis with relatively severe L5-S1 neural foraminal stenosis. She has notable L3-L4 and L4-L5 disk disease and facet ligamentum flavum hypertrophy resulting in mild to moderate spinal stenosis and subarticular stenosis. She also has a disk protrusion at L2-L3 with facet ligamentum flavum hypertrophy with subarticular stenosis, and finally at L1-L2 with the same degree of spinal and subarticular narrowing and facet ligamentum flavum hypertrophy. Plan today for palliative left L4-L5 epidural steroid injection under fluoroscopy. If this nice lady continues having back and leg pain, I would consider her as a candidate possibly for a trial of a neurostimulator. I will dispense information on a neurostimulator today as an educational tool. OPERATIVE PROCEDURE: Left L4-L5 epidural steroid injection with fluoroscopic guidance. DESCRIPTION OF PROCEDURE: The risks and benefits were discussed with the patient including the risk of infection, bleeding, nerve injury, and headache, as well as the risks of steroid exposure causing hyperglycemia, hypertension, osteoporosis, or increased infectious risks. The patient understood these risks and agreed to proceed. Consent was obtained prior to the procedure. The patient was placed in the prone position on the fluoroscopy table with a pillow underneath the abdomen to afford anterior flexion of the lumbar spine. The low back was cleaned and a sterile drape was applied. An 25-gauge thin wall Tuohy epidural needle was advanced with normal saline loss of resistance technique and direct fluoroscopic guidance with a left paramedian approach at the L4-L5 level. On obtaining loss of resistance to normal saline, it was verified that there was no aspiration of CSF or blood. Furthermore, the needle tip location was verified with lateral and AP fluoroscopic views. Omnipaque 240 myelogram dye were injected through the epidural needle. The distribution of the dye was noted to be within the desired distribution within the lumbar epidural space. The medication was injected into the epidural space. The stylet was replaced in the needle and the needle was removed from the back. The patient tolerated the procedure well. The back was cleaned and a bandage was applied over the injection site. The patient was monitored for 20 minutes following the procedure. during this time the vital signs remained stable and the patient experienced no adverse sequelae. The patient was discharged in good condition. ASSESSMENT: 1. Multi-level spinal subarticular stenosis. 2. L5-S1 left neural foraminal stenosis. PLAN: Left L4-L5 epidural steroid injection with fluoroscopic guidance today. FOLLOWUP: Return to clinic if problems develop or worsen. cc: Dr. Vic ISRAEL
== END 2017-06-18 13:40 ==
LOC: OUT 13:38
PROVIDERS: ATTEND Anesthesiology Pain Medicine
DX: M48.07 Spinal stenosis, lumbosacral region (principal)
CPT/HCPCS: J3301; Q9966; 99213; G0463

== ENCOUNTER 2017-07-13 16:46 | Emergency (ER) | payer OTHER ==
--- NOTE | 2017-07-13 17:15 | ED Physician Documentation ---
Low Back Pain - HISTORIAN Historian: patient - HPI Stated Complaint: back pain Chief Complaint: Low Back Pain/ Injury Additional Information: giancarlo in ER , has a pain management dr, but they are closed at this time of the day. states she stood up 3 days ago and everybody in the room "heard my back pop over the loud TV". now c/o pain in a diff area than normal." no other complaints. pain in the T12-L2 area. History: history of chronic pain: Onset: days ago Duration: continues in ED Recent Injury: Yes Context: other (standing) Where: home Other Injuries: denies: neck, head Severity: mild Quality: burning Associated Symptoms: difficulty walking. denies: fever, chills, incontinence, problems urinating Worsened By:: upright position, movement to RT flexion, movement to LT flexion Relieved By: nothing Further Comments: no - ROS CONST: no problems CVS/RESP: none EYES/ENT: none MS/SKIN/LYMPH: none Neuro/Psych: none GI/: denies: abdominal pain - PAST HX Past History: arthritis, back pain, sciatica, intervert. disc disease Other History: denies: aortic aneurysm Surgeries/Procedures: none Immunizations: UTD Allergies/Adverse Reactions: Allergies Allergy/AdvReac Type Severity Reaction Status Date / Time bupropion HCl Allergy Verified 07/13/17 17:08 [From Wellbutrin] metformin Allergy Verified 07/13/17 17:08 Penicillins Allergy Verified 07/13/17 17:08 Sulfa (Sulfonamide Allergy Verified 07/13/17 17:08 Antibiotics) Home Medications: Ambulatory Orders Medication Instructions Recorded Albuterol Sulfate [Proair Hfa] 2 inhalation IH Q 4-6 HRS PRN #1 03/21/17 each Duloxetine HCl 60 mg PO DAILY 03/21/17 Fluticasone Propionate 100 mcg NS DAILY #1 brittney 03/21/17 Nortriptyline HCl 25 mg PO BID av 03/21/17 Atorvastatin Calcium 40 mg PO QDAY 06/05/17 Naproxen [Naprosyn] 500 mg PO BID #10 tablet 06/05/17 Oxycodone HCl/Acetaminophen 1 each PO BID #2 tablet 06/05/17 [Percocet 10/325] - SOCIAL HX Smoking History: cigarettes Alcohol Use: none Drug Use: none - FAMILY HX Family History: no significant history - VITAL SIGNS Vital Signs: Vital Signs Temp Pulse Resp BP Pulse Ox 99.0 F 115 H 16 119/82 98 07/13/17 16:50 07/13/17 16:50 07/13/17 16:50 07/13/17 16:50 07/13/17 16:50 - REVIEWED ASSESSMENTS Nursing Assessment Reviewed: Yes Vitals Reviewed: Yes ED Results Lab/Radiology - Radiology Radiology Impressions: t spine CT neg acute. pos arthritis changes. - Orders Orders: ED Orders Category Date Time Status CT T-SPINE W/O CONTRAST Stat Exams 07/13/17 Taken Low Back Pain/Injury - Physical Exam General Appearance: no acute distress, alert EENT: ENT inspection normal Neck: non-tender Resp/CVS: chest non-tender Abdomen: non-tender Back: muscle spasm (TTP lat upper L spine) Straight Leg Raising: Positive Left, Positive Right Neuro/Psych: oriented x3, sensation nml Skin: warm/dry, normal color Discharge Clincal Impression: Chronic back pain Qualifiers: Back pain location: thoracic back pain Back pain laterality: unspecified Qualified Code(s): M54.6 - Pain in thoracic spine; G89.29 - Other chronic pain Thoracic myofascial strain Qualifiers: Encounter type: initial encounter Qualified Code(s): S29.019A - Strain of muscle and tendon of unspecified wall of thorax, initial encounter Referrals: Vic Mukherjee MD [Primary Care Provider] - 2 Days Condition: Stable Disposition: 01 HOME, SELF-CARE Decision to Admit: NO Date of Decison to Admit: 07/13/17 Decision Time: 18:09
[2017-07-13] MEDS: KETOROLAC TROMETHAMINE 30 MG/1ML VIAL IM ONE (18:10)
[2017-07-13] MEDS: methylPREDNISolone SOD SUCC 125 MG/2 ML VIAL IM ONE (18:10)
[2017-07-13 18:21] VITALS: BP 112/68
--- NOTE | 2017-07-13 19:10 | Diagnostic Imaging Report ---
DONALDO HURST [facility] [address] [facility] [address] [address] Report Submission Date: Jul 13, 2017 5:52:06 PM CDT Patient Study Name: MADAN SADLER Date: Jul 13, 2017 5:25:15 PM CDT Modality Type: CT\SR Gender: F Description: CT T-SPINE W/O CONTRAS : 64 Institution: [facility] Physician: DONALDO HURST Examination: CT thoracic spine History: Back discomfort Comparison exams: None provided Technique: CT thoracic spine axial imaging with sagittal and coronal reconstruction Findings: Sagittal reconstruction demonstrates normal height and alignment of the thoracic vertebral bodies. No anterior compression deformity. Scattered anterior, lateral, and posterior osteophytes. Coronal reconstruction does not demonstrate locked or perched facets. Axial imaging obtained from C7 through L1 Lamina and pedicles are intact. No ossific density within the central canal. Multilevel facet degenerative changes. No prevertebral soft tissue abnormality. Impression: Multilevel degenerative changes No evidence for fracture. If patient is experiencing neurologic symptoms, consider obtaining MRI. Electronically signed on Jul 13, 2017 5:52:06 PM CDT by: Miguel Angel ISRAEL
== END 2017-07-13 18:20 | disposition home or self-care (01) ==
LOC: ED 16:46
DX: S29.019A Strain of muscle and tendon of unspecified wall of thorax, initial encounter (principal); X58.XXXA Exposure to other specified factors, initial encounter; Y93.9 Activity, unspecified; Y99.9 Unspecified external cause status; G89.29 Other chronic pain
CPT/HCPCS: 72128; J1885; J2930; 96372; 99283

== ENCOUNTER 2017-07-30 14:00 | Outpatient (CLI) | payer OTHER ==
--- NOTE | 2017-07-31 16:21 | PAIN CLINIC PROGRESS NOTES ---
REASON FOR VISIT: I had the opportunity of following up with Laine Jain from June. This is a very nice 57-year-old white female with left low back pain radiating to the left hip and leg associated with severe L5-S1 neural foraminal stenosis. I placed a left L5-S1 epidural steroid injection. She says her symptoms are much improved today and that the hip pain has almost resolved and that the pain has moved primarily into the low back. She is having problems wearing a belt because her back hurts but her leg pain is much improved. I would like to repeat a lumbar epidural steroid injection today under fluoroscopy for the lumbar radiculitis that is now responding to treatment. ASSESSMENT: Lumbar radiculitis, now improved. PLAN: We will plan on placing a left L5-S1 epidural steroid injection in the near future. cc: Dr. Vic ISRAEL
== END 2017-07-30 14:03 ==
LOC: OUT 14:00
PROVIDERS: ATTEND Anesthesiology Pain Medicine
DX: M54.16 Radiculopathy, lumbar region (principal)
CPT/HCPCS: 99213; G0463

== ENCOUNTER 2017-08-28 13:57 | Outpatient (CLI) | payer OTHER ==
[~2017-08-28 13:57] MED LIST changes: -0.9 % SODIUM CHLORIDE PF 10 ML VIAL IJ ONE; +BUPIVACAINE HCL/PF 2.5 MG/ML 10ML VIAL IV ONE
[2017-08-28 15:38] LABS: AMPHETAMINE NEGATIVE ng/mL (<1000); BARBITURATES NEGATIVE ng/mL (<200); CANNABINOIDS NEGATIVE ng/mL (<50); COCAINE NEGATIVE ng/mL (<300); METHAMPHETAMINE NEGATIVE ng/mL (<1000)
--- NOTE | 2017-08-29 13:33 | LUMBAR TFESI ---
Dear Link: SUBJECTIVE: I had the opportunity of following up with Laine Jain. This is a nice 57-year- old white female with chronic back and left L4 radiculitis and multi-level degenerative disk disease with disk protrusions and neural foraminal stenosis. I treated her with an epidural injection x2 and she tells me she has improved each time but the symptoms keep returning. We provided her with prescriptions for oxycodone. She has had a prescription in June and July and then a follow up prescription from Dr. Mukherjee's office for 30 tablets. In the interim, she has had a urine drug screen which was positive for amphetamine and I have asked her about that today and she tells me she does not use amphetamine drugs and that her back does continue to hurt. At this point, I told her that I will need to repeat a urine drug screen before I would be comfortable prescribing any further oral opiate analgesics and that she should only be obtaining pain medication from either our service or Dr. Mukherjee's service but not both. As I look at her today, she has skin lesions on her face. She tells me this an allergic response and I question if this is not side effects from drug use. At this juncture, I am going to provide her with a benefit of a doubt and obtain a new drug screen and place an L4 transforaminal injection today. Consider obtaining a surgical consultation and a possible evaluation for a neurostimulator if her symptoms continue and we cannot get resolution of her symptoms through an injection or a surgical solution. PREOPERATIVE DIAGNOSIS: Left lumbar radiculitis at L4-L5 dermatomal distribution. PROCEDURE: Left L4 transforaminal epidural steroid injection with fluoroscopic guidance. DESCRIPTION OF PROCEDURE: The risks and benefits were discussed with the pt. including the risks of infection, bleeding, nerve injury, and headache, as well as the risks of steroid exposure causing hyperglycemia, hypertension, osteoporosis, or increased infectious risk. The patient understood these risks and agreed to proceed. Consent was obtained. The patient was placed in the prone position on the fluoroscopy table with a pillow underneath the abdomen to afford anterior flexion of the lumbar spine. The low back was cleaned and a sterile drape was applied. AP, lateral and oblique fluoroscopic views were obtained identifying the L4 vertebral body and L4 transverse process. An oblique view of the transverse process and pedicles was obtained. A 23-gauge, 3-1/2 inch needle was advanced under direct-beam ( barrel view) fluoroscopic guidance until the tip contacted the superior-most aspect of the left L5 superior articulating process. The needle was then directed superiorly and medially a few millimeters towards the intervertebral foramen. A lateral fluoroscopic view was obtained and the needle was advanced into the inferior/anterior aspect of the L4 neural foramen (L4-L5 intervertebral foramen) epidural space. It was verified that there was no aspiration of CSF or blood. Omnipaque 240 myelogram dye was injected through the needle. The dye was noted to course in the desired distribution within the lumbar foramen epidural space. The medication was injected into the epidural space. The stylet was replaced in the needle and the needle was removed from the back. The patient tolerated the procedure well. The back was cleaned and a bandage was applied over the injection site. The patient was monitored for 20 minutes following the procedure. During this time the vital signs remained stable and the patient experienced no adverse sequelae. The patient was discharged home in good condition. ASSESSMENT: 1. Lumbar stenosis. 2. Lumbar radiculitis/neuritis. PLAN: Plan today for an L4 transforaminal injection. This may be more effective for control of her symptoms. We will have to follow her up in the near future. FOLLOWUP: Return to clinic if problems develop or worsen. NOTE: We asked Mrs. Jain for a repeat urine sample today because she had a previous urine drug toxicity screen which was positive for amphetamine. She could not produce any urine for testing today. Therefore I am not going to continue writing opiate medication until I can verify that there is no evidence for abuse or diversion. ADDENDUM: She was subsequently able to give us a urine drug sample which was negative for methamphetamine and consistent with tricyclic antidepressants, benzodiazepines, and opiates. At this point, we are going to give her a 30 tablet refill of oxycodone. I will plan to re-screen her on a routine basis. Her SOAPP-R risk assessment is moderate with a score of 9. cc: Dr. Vic ISRAEL
== END 2017-08-28 14:00 ==
LOC: OUT 13:57
PROVIDERS: ATTEND Anesthesiology Pain Medicine
DX: M54.16 Radiculopathy, lumbar region (principal)
CPT/HCPCS: 64483; 80324; 80377; 99214; G0463; J3301; G0481; G0482; J3490; Q9966

== ENCOUNTER 2017-09-14 22:37 | Emergency (ER) | payer OTHER ==
--- NOTE | 2017-09-14 23:19 | ED Physician Documentation ---
General Adult - HISTORIAN Historian: patient - HPI Stated Complaint: dizzy, nausea Chief Complaint: General Adult Additional Information: Two weeks dizzy. Saw Dr. Mukherjee and placed on (unknown) antibiotic. Still has one more pill to take. Has difficulty swallowing since July and wants this evaluated tonight. Neck surgery more than a year ago. Takes 5 mg valium tid. No recent med changes. Came to the ER tonight because she can't see Dr. Mukherjee until 09/20. Slurred speech at times. Falls asleep in mid sentence. Says she was brought to ER POV. "my cousin.. . . .My cousin's daughter. . . . he had some shopping to do and he'll be back." Sees Dr. Harman for chronic back pain. - ROS CONST: denies: fever - PAST HX Past History: other (NIDDM, anxiety/depression) Surgeries/Procedures: hysterectomy, other (tonsillectomy. unknown neck surgery) Allergies/Adverse Reactions: Allergies Allergy/AdvReac Type Severity Reaction Status Date / Time bupropion HCl Allergy Verified 09/14/17 22:57 [From Wellbutrin] Penicillins Allergy Verified 09/14/17 22:57 Sulfa (Sulfonamide Allergy Verified 09/14/17 22:57 Antibiotics) Home Medications: Ambulatory Orders Medication Instructions Recorded Albuterol Sulfate [Proair Hfa] 2 inhalation IH Q 4-6 HRS PRN #1 03/21/17 each Fluticasone Propionate 100 mcg NS DAILY #1 brittney 03/21/17 oxyCODONE HCL/ACETAMINOPHEN 1 tab PO D 09/14/17 [Percocet 5/325] - SOCIAL HX Smoking History: non-smoker - FAMILY HX Family History: No - VITAL SIGNS Vital Signs: Vital Signs Temp Pulse Resp BP Pulse Ox 112/68 07/13/17 18:20 - REVIEWED ASSESSMENTS Nursing Assessment Reviewed: Yes Vitals Reviewed: Yes Progress - Progress Progress: 0019, discussed pt with Dr. Mukherjee. 0029. spoke with charter coordinator, Carleen, at [facility]. 0129, Pt accepted for admit to [facility] per Dr. Martines. Report Submission Date: Sep 15, 2017 1:45:00 AM MEDICAL INFORMATION OFFICER Patient Study Name: MADAN SADLER Date: Sep 15, 2017 1:26:01 AM MEDICAL INFORMATION OFFICER Modality Type: CT\\SR Gender: F Description: CT BRAIN W/O CONTRAST : 64 Institution: [facility] Physician: KYLEE DELGADO - FRANCES Computed tomography of the head without contrast History: Mental status changes Findings: Transverse brain sections are obtained without contrast. Ventricles and sulci are normal in size. [place]rb[place] white differentiation is intact. There is no intracranial hemorrhage, mass lesion, or fluid collection. The skull is intact. Visualized sinuses and mastoid air cells are clear. Impression: Normal. Electronically signed on Sep 15, 2017 1:45:00 AM MEDICAL INFORMATION OFFICER by: Jose Moore Repetitious: lists metformin 4 times when she names her meds. Washed her hands three times after she urinated, then threw away specimen. Falls asleep. 0150, Will give second liter NS at 500 ml/hour. ED Results Lab/Radiology - Orders Orders: ED Orders Category Date Time Status Place IV Lock 1T Care 09/14/17 23:13 Ordered CBC/PLATELET/DIFF Routine Lab 09/14/17 Ordered CMP Routine Lab 09/14/17 Ordered DRUG SCREEN URINE MEDICAL ONLY Routine Lab 09/14/17 Ordered ETHANOL REF Stat Lab 09/14/17 Ordered URINALYSIS Routine Lab 09/14/17 Ordered General Adult Physical Exam - PHYSICAL EXAM GENERAL APPEARANCE: no distress (Randomly falls asleep.) EENT: eye inspection normal, ENT inspection normal (dentures), pharynx normal ( Mallampati 1), no signs of dehydration, TM's nml NECK: normal inspection, supple RESPIRATORY: no resp distress, breath sounds normal CVS: reg rate & rhythm, heart sounds normal, no murmur ABDOMEN: soft, normal bowel sounds, non-tender BACK: normal inspection, no CVA tenderness SKIN: warm/dry, normal color EXTREMITIES: normal range of motion (slow gait, normal stance) NEURO: CN's nml as tested, motor nml, sensation nml, other (no asymmetry. Reflexes 2+) Discharge Clincal Impression: Mental status change Qualifiers: Altered mental status type: unspecified Qualified Code(s): R41.82 - Altered mental status, unspecified Acute renal failure (ARF) Qualifiers: Acute renal failure type: unspecified Qualified Code(s): N17.9 - Acute kidney failure, unspecified Referrals: Vic Mukherjee MD [Primary Care Provider] - 2 Days Condition: Fair Disposition: 02 XFER SHT-TRM HOSP Decision to Admit: NO Decision Time: 01:25
[2017-09-15] MEDS: 0.9 % SODIUM CHLORIDE 1,000 ML IV ONE ×2 (00:18→02:00)
[2017-09-15 00:45] LABS: BASOPHILS % 0.3 (0.0-1.5); EOSINOPHILS % 1.7 % (0.0-6.8); MEAN CORPUSCULAR VOLUME 92.9 fl (80.0-100.0); MONOCYTES % 4.9 % (0.0-11.0); NEUTROPHILS # 12.1 # k/uL (1.4-7.7)
[2017-09-15 03:55] VITALS: BP 116/62
[2017-09-15 06:24] LABS: APPEARANCE,URINE CLOUDY (CLEAR); COLOR,URINE YELLOW (YELLOW); OCCULT BLOOD,URINE NEGATIVE (NEGATIVE); UROBILINOGEN URINE 0.2 Eu (0.2-1.0)
[2017-09-15 06:25] LABS: AMPHETAMINE NEGATIVE ng/mL (<1000); BARBITURATES NEGATIVE ng/mL (<200); CANNABINOIDS NEGATIVE ng/mL (<50); COCAINE NEGATIVE ng/mL (<300); METHAMPHETAMINE NEGATIVE ng/mL (<1000)
--- NOTE | 2017-09-15 06:33 | Diagnostic Imaging Report ---
KYLEE DELGADO [facility] [id number] [facility] [address] [place] [address]. [id number] Report Submission Date: Sep 15, 2017 1:45:00 AM SYSTEM OPERATOR Patient Study Name: MADAN SADLER Date: Sep 15, 2017 1:26:01 AM SYSTEM OPERATOR Modality Type: CT\SR Gender: F Description: CT BRAIN W/O CONTRAST : 64 Institution: [facility] Physician: KYLEE DELGADO Computed tomography of the head without contrast History: Mental status changes Findings: Transverse brain sections are obtained without contrast. Ventricles and sulci are normal in size. [place]ina white differentiation is intact. There is no intracranial hemorrhage, mass lesion, or fluid collection. The skull is intact. Visualized sinuses and mastoid air cells are clear. Impression: Normal. Electronically signed on Sep 15, 2017 1:45:00 AM SYSTEM OPERATOR by: Jose ISRAEL
== END 2017-09-15 02:15 | disposition short-term general hospital (02) ==
LOC: ED 22:37
DX: R41.82 Altered mental status, unspecified (principal); N17.9 Acute kidney failure, unspecified
CPT/HCPCS: 51701; 70450; 80053; 81002; 85025; G0480; G0481; J7030; 80320; 80377; 96360; 99284; S1016

== ENCOUNTER 2017-09-24 12:42 | Emergency (ER) | payer OTHER ==
--- NOTE | 2017-09-24 14:10 | ED Physician Documentation ---
Fall - HISTORIAN Historian: patient - HPI Stated Complaint: fall Chief Complaint: Fall Onset: today Where: home Context: tripped r: mild Associated Symptoms:: no loss of consciousness Injury to Right Extremity: wrist, ankle Injury to Left Extremity: wrist Further Comments: yes (57 year old female patient presents with complaint of bilateral wrist pain and right ankle pain. Patient states she stayed up all night. Stood up from chair, become dizzy and fell.) - ROS CONST: no problems NEURO: dizziness MS/SKIN/LYMPH: denies: weakness, numbness, neck pain, back pain, ankle swelling , leg swelling, rash, other EYES/ENT: none CVS/RESP: none GI/: denies: nausea, vomiting - PAST HX Past History: diabetes Type 2, COPD, other (left wrist ORIF, anxiety) Allergies/Adverse Reactions: Allergies Allergy/AdvReac Type Severity Reaction Status Date / Time bupropion HCl Allergy Verified 09/24/17 13:36 [From Wellbutrin] Penicillins Allergy Verified 09/24/17 13:36 Sulfa (Sulfonamide Allergy Verified 09/24/17 13:36 Antibiotics) Home Medications: Ambulatory Orders Medication Instructions Recorded Albuterol Sulfate [Proair Hfa] 2 inhalation IH Q 4-6 HRS PRN #1 03/21/17 each Fluticasone Propionate 100 mcg NS DAILY #1 brittney 03/21/17 oxyCODONE HCL/ACETAMINOPHEN 1 tab PO D 09/14/17 [Percocet 5/325] - SOCIAL HX Smoking History: cigarettes - FAMILY HX Family History: denies: none - VITAL SIGNS Vital Signs: Vital Signs Temp Pulse Resp BP Pulse Ox 97.0 F L 90 16 103/63 99 09/24/17 12:58 09/24/17 13:45 09/24/17 12:58 09/24/17 13:45 09/24/17 12:58 - REVIEWED ASSESSMENTS Nursing Assessment Reviewed: Yes Vitals Reviewed: Yes ED Results Lab/Radiology - Radiology Radiology Impressions: Examination: Plain film wrist History: Fall Comparison exams: None available Findings: 3 views the right and left wrist. Bilateral osteopenia. Left wrist distal radial fixation hardware. No evidence for suspicious fracture. Right wrist suggests an ulna styloid avulsion. Carpal bone degenerative changes. Impression: Left wrist radial fixation hardware. Generalized osteopenia and degenerative changes. Likely right ulna styloid avulsion. Electronically signed on Sep 24, 2017 1:42:53 PM TALENT DEVELOPMENT ANALYST by: Miguel Angel Walsh Examination: Plain film ankle History: Injury Findings: 3 views of the ankle demonstrates osteopenia. No fracture or dislocation. Talar dome is intact. Distal tibial fixation hardware. No soft tissue swelling. No joint effusion. Impression: Osteopenia and tibial fixation hardware. No acute appearing fracture. Electronically signed on Sep 24, 2017 1:44:08 PM TALENT DEVELOPMENT ANALYST by: Miguel Angel Walsh - Orders Orders: ED Orders Category Date Time Status Orthostatics 1T Care 09/24/17 13:14 Active ANKLE 3 VIEWS OR MORE [RAD] Stat Exams 09/24/17 Ordered BILAT WRISTS 3 VIEW [RAD] Stat Exams 09/24/17 Ordered Chem Sticks Med 09/24/17 14:00 Ordered 1 each MC PRN Fall Physical Exam - Physical Exam General Appearance: mild distress Eye: GLYNN, EOMI, lids & conjunct. nml Resp/CVS: chest non-tender, no ecchymosis, breath sounds nml, no resp. distress , heart sounds nml Abdomen: soft, no organomegaly, normal bowel sounds, no abdominal bruit, no distension Neuro: oriented x3, CN's nml as tested, sensation nml, motor nml, mood/affect nml, health sciences dean nml, reflexes nml, health sciences dean symmetrical Skin: color nml Extremities: atraumatic, pelvis stable, hips non-tender, no pedal edema, nml color/temp, bony point-tenderness (right wrist and left wrist), unable to bear weight (right ankle) - Jeanc Laude Coma Score Eyes Open: Spontaneous Speech: Oriented Motor: Obeys Commands Discharge Clincal Impression: right ulna styloid avulsion fracture Referrals: Vic Mukherjee MD [Primary Care Provider] - 2 Days Condition: Stable Disposition: 01 HOME, SELF-CARE Decision to Admit: NO Decision Time: 14:09
[2017-09-24 14:39] VITALS: BP 107/60
--- NOTE | 2017-09-24 14:51 | Diagnostic Imaging Report ---
HILARY AVALOS (LUZ) - [facility] [address] [address] Report Submission Date: Sep 24, 2017 1:42:53 PM RAIL CAR MECHANIC Patient Study Name: MADAN SADLER Date: Sep 24, 2017 1:12:28 PM RAIL CAR MECHANIC Modality Type: CR Gender: F Description: UPPER EXTREMITY : 64 Institution: [facility] Physician: HILARY AVALOS) - Examination: Plain film wrist History: Fall Comparison exams: None available Findings: 3 views the right and left wrist. Bilateral osteopenia. Left wrist distal radial fixation hardware. No evidence for suspicious fracture. Right wrist suggests an ulna styloid avulsion. Carpal bone degenerative changes. Impression: Left wrist radial fixation hardware. Generalized osteopenia and degenerative changes. Likely right ulna styloid avulsion. Electronically signed on Sep 24, 2017 1:42:53 PM RAIL CAR MECHANIC by: Miguel Angel ISRAEL
--- NOTE | 2017-09-24 14:51 | Diagnostic Imaging Report ---
HILARY AVALOS (LUZ) - [facility] [address] [address] Report Submission Date: Sep 24, 2017 1:44:08 PM SUPERVISOR GROWER Patient Study Name: MADAN SADLER Date: Sep 24, 2017 1:20:06 PM SUPERVISOR GROWER Modality Type: CR Gender: F Description: LOWER EXTREMITY : 64 Institution: [facility] Physician: HILARY AVALOS) - Examination: Plain film ankle History: Injury Findings: 3 views of the ankle demonstrates osteopenia. No fracture or dislocation. Talar dome is intact. Distal tibial fixation hardware. No soft tissue swelling. No joint effusion. Impression: Osteopenia and tibial fixation hardware. No acute appearing fracture. Electronically signed on Sep 24, 2017 1:44:08 PM SUPERVISOR GROWER by: Miguel Angel ISRAEL
== END 2017-09-24 14:37 | disposition home or self-care (01) ==
LOC: ED 12:42
DX: S52.611A Displaced fracture of right ulna styloid process, initial encounter for closed fracture (principal); X58.XXXA Exposure to other specified factors, initial encounter; Y93.9 Activity, unspecified; Y99.9 Unspecified external cause status
CPT/HCPCS: 73610; 99283; L3908

== ENCOUNTER 2017-12-03 01:04 | Emergency (ER) | payer MEDICARE ==
--- NOTE | 2017-12-03 01:26 | ED Physician Documentation ---
Fall - HISTORIAN Historian: patient, spouse - HPI Chief Complaint: Fall Additional Information: fell on slick floor c/opain both arms bryce rt sone in neck upper back shoulder bilat-pt is chronic pain pt takes percocet prn Onset: just prior to arrival (about 1245) Where: home Context: slipped r: mild, moderate Associated Symptoms:: no loss of consciousness Location of Pain/Injury: neck, upper back, mid back, lower back, R shoulder, L shoulder, upper extremity. denies: head Injury to Right Extremity: shoulder, arm, elbow, forearm, wrist, hand Injury to Left Extremity: shoulder, arm, elbow, forearm, wrist, hand (moves both bryce when signing in to ed worse on rt than left but moves rt also w./osig difficulty hurts every where when i touch). denies: knee, leg, ankle, foot - ROS CONST: no problems NEURO: anxiety. denies: dizziness, depression MS/SKIN/LYMPH: neck pain, back pain. denies: weakness, numbness, ankle swelling , leg swelling EYES/ENT: none. denies: problems with vision CVS/RESP: none. denies: shortness of breath GI/: denies: problems urinating - PAST HX Past History: diabetes Type 2 (htn chronic pain patient) Allergies/Adverse Reactions: Allergies Allergy/AdvReac Type Severity Reaction Status Date / Time bupropion HCl Allergy Verified 12/03/17 01:24 [From Wellbutrin] Penicillins Allergy Verified 12/03/17 01:24 Sulfa (Sulfonamide Allergy Verified 12/03/17 01:24 Antibiotics) Home Medications: Ambulatory Orders Medication Instructions Recorded Albuterol Sulfate [Proair Hfa] 2 inhalation IH Q 4-6 HRS PRN #1 03/21/17 each Fluticasone Propionate 100 mcg NS DAILY #1 brittney 03/21/17 - SOCIAL HX Smoking History: cigarettes, greater than 1 pack/day Alcohol Use: none Drug Use: none - FAMILY HX Family History: no significant history - VITAL SIGNS Vital Signs: Vital Signs Temp Pulse Resp BP Pulse Ox 107/60 09/24/17 14:37 - REVIEWED ASSESSMENTS Nursing Assessment Reviewed: Yes Vitals Reviewed: Yes ED Results Lab/Radiology - Orders Orders: ED Orders Category Date Time Status HYDROcodone /APAP 5/325 [[place] 5/325] Med 12/03/17 01:21 Once 1 each PO NOW ONE Orphenadrine Citrate [Norflex] Med 12/03/17 02:00 Ordered 100 mg PO 1T Fall Physical Exam - Physical Exam General Appearance: mild distress, moderate distress. No: lethargic, unconscious Head: non-tender, no swelling, no obvious injury Neck: pain with neck movement (but moves neck freely says pain not severe but also ext bryce to upper back) Eye: GLYNN, EOMI Resp/CVS: chest non-tender, no ecchymosis, breath sounds nml, no resp. distress , heart sounds nml Abdomen: soft, non-tender Neuro: oriented x3, rail signal worker symmetrical (signed adm to ed w/o apparent difficulty) Skin: color nml, no rash. 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
[2017-12-03] MEDS: HYDROcodone /APAP 5/325 1 EACH TABLET PO ONE (01:34)
[2017-12-03] MEDS: ORPHENADRINE CITRATE 100 MG TAB PO SCH (01:34)
[2017-12-03] MEDS: ORPHENADRINE CITRATE 60 MG/2ML ONE (01:40)
[2017-12-03 01:41] VITALS: BP 109/80
[2017-12-03] MEDS: ORPHENADRINE CITRATE 60 MG/2ML IM ONE (02:04)
== END 2017-12-03 01:45 ==
LOC: ED 01:04
DX: M25.511 Pain in right shoulder (principal); M25.521 Pain in right elbow; M25.531 Pain in right wrist; E11.9 Type 2 diabetes mellitus without complications; I10 Essential (primary) hypertension
CPT/HCPCS: 99282; 99283; A9270; J2360

== ENCOUNTER 2017-12-26 12:49 | Outpatient (CLI) | payer MEDICARE ==
[2017-12-26 13:12] LABS: MEAN CORPUSCULAR HEMOGLOBIN 29.4 pg (28.0-34.0); MEAN CORPUSCULAR VOLUME 95.1 fl (80.0-100.0)
[2017-12-26 13:29] LABS: APPEARANCE,URINE Clear (CLEAR); COLOR,URINE Yellow (YELLOW); OCCULT BLOOD,URINE Negative (NEGATIVE); UROBILINOGEN URINE 0.2 Eu (0.2-1.0)
[2017-12-26 13:46] LABS: eGFR (African) > 60; eGFR (Non-African) > 60
== END 2017-12-26 12:50 ==
LOC: LAB 12:49
PROVIDERS: ATTEND Neurological Surgery
DX: M48.062 Spinal stenosis, lumbar region with neurogenic claudication (principal)
CPT/HCPCS: 36415; 80048; 81002; 85027

== ENCOUNTER 2018-08-28 16:23 | Outpatient (CLI) | payer MEDICARE ==
[2018-08-28 16:47] LABS: eGFR (Non-African) > 60
== END 2018-08-28 16:24 ==
LOC: LABRHC 16:23
PROVIDERS: ATTEND Family Medicine
DX: E11.9 Type 2 diabetes mellitus without complications (principal); Z79.4 Long term (current) use of insulin
CPT/HCPCS: 80053; 80061; 82043; 83036

== ENCOUNTER 2019-08-07 13:04 | Outpatient (CLI) | payer MEDICARE ==
[2019-08-07 14:17] LABS: BASOPHILS % 0.4 % (0.0-1.5); NEUTROPHILS # 6.2 # k/uL (1.4-7.7)
[2019-08-07 15:08] LABS: HDL 61 mg/dL (>40); eGFR (Non-African) > 60
[2019-08-08 16:18] LABS: APPEARANCE,URINE CLEAR (CLEAR); COLOR,URINE YELLOW (YELLOW); OCCULT BLOOD,URINE NEGATIVE (NEGATIVE); UROBILINOGEN URINE 0.2 Eu (0.2-1.0)
== END 2019-08-07 13:09 ==
LOC: LAB 13:04
PROVIDERS: ATTEND Psychiatry & Neurology Psychiatry
DX: Z51.81 Encounter for therapeutic drug level monitoring (principal); Z79.899 Other long term (current) drug therapy
CPT/HCPCS: 36415; 80053; 80061; 81002; 82306; 82607; 84443; 85025; 85651; 86140; 87086